=== PATIENT | female | born 1960 | race Caucasian/White ===

== ENCOUNTER → 2020-12-07 | Outpatient (CLI) | payer BC ==
--- NOTE | 2020-12-07 14:54 | KCIC ---
Bilateral digital screening mammograms with 3-D tomosynthesis: Reason for examination: Routine screening. Comparison is made to previous study dated 12/04/2018. Bilateral mammograms in CC and oblique projections were obtained with 2-D imaging and 3-D tomosynthes is imaging on a Siemens Inspiration unit and reviewed on the workstation. Interpretation was made wit h the benefit of CAD. The skin and nipples show no abnormalities. No abnormal axillary lymph nodes are seen. The breast par enchyma is heterogeneously dense. (Breast density: Category C.) There appears to be some nodular pare nchymal density at the 9:00 B position of the right breast. Further evaluation with ultrasound is rec ommended. There are no other dominant masses, suspicious calcifications or architectural distortion. A few benign appearing calcifications are present. Impression: Nodular asymmetry at the 9:00 B position of the right breast. Recommend further evaluation. Your patient's mammogram demonstrates that she has dense breast tissue (breast density category C or D), which could hide abnormalities, and if she has other risk factors for breast cancer that have bee n identified, she might benefit from supplemental screening tests that may be suggested by you as her ordering physician. Dense breast tissue, in and of itself, is a relatively common condition. Therefo re, this information is not provided to cause undue concern, but rather to raise your awareness and t o promote discussion with your patient regarding the presence of other risk factors, in addition to d ense breast tissue. Your patient's mammography results will be sent to her. BI-RAD Category 0: Incomplete. Needs additional imaging evaluation. "Our facility is accredited by the [employer] Mammography [employer]." This patient's information has been entered into a reminder system for the patient to be notified wit h the results of her examination and a target date for the next mammogram. Electronically signed by: Tonie Parson MD (12/07/2020 2:52 PM) [email or web address]
== END ==
LOC: KCIC MAMMO 13:35
PROVIDERS: ATTEND Family Medicine
DX: Z12.31 Encounter for screening mammogram for malignant neoplasm of breast (principal)
CPT/HCPCS: 77063; 77067

== ENCOUNTER → 2020-12-23 | Outpatient (CLI) | payer BC ==
--- NOTE | 2020-12-23 11:55 | KCIC ---
Right breast ultrasound: Reason for examination: Nodular density on screening mammogram. Comparison is made to mammographic exam dated 12/07/2020. Right whole breast ultrasound including evaluation of all 4 quadrants and the retroareolar and axilla ry regions of the right breast was performed. At the 9:00 position 7 cm from the nipple, there is a hypoechoic circumscribed lesion in parallel elina entation with some posterior acoustic enhancement measuring 9.7 mm in greatest dimension. The appeara nce is consistent with a small fibroadenoma. No other cystic or solid nodules are seen. No abnormal a ppearing lymph nodes are seen in the axilla. IMPRESSION: Small nodule consistent with a fibroadenoma at the 9:00 position measuring 9.7 mm in greatest dimensi on. Recommend 6 month follow-up with ultrasound. BI-RADS Category 3: Probably Benign. "Our facility is accredited by the [employer] Mammography [employer]." This patient's information has been entered into a reminder system for the patient to be notified wit h the results of her examination and a target date for the next mammogram. Electronically signed by: Tonie Parson MD (12/23/2020 11:53 AM) [email or web address]
== END ==
LOC: KCIC US 09:52
PROVIDERS: ATTEND Family Medicine
DX: N63.13 Unspecified lump in the right breast, lower outer quadrant (principal)
CPT/HCPCS: 76641

== ENCOUNTER → 2021-08-17 | Outpatient (CLI) | payer BC, OTHER ==
--- NOTE | 2021-08-17 15:17 | KCIC ---
Right breast ultrasound: Reason for examination: Follow-up for nodule. Comparison is made to previous exam dated 12/23/2020. Ultrasound examination of the right breast and axilla was performed. The right breast at the 9:00 position 7 cm from the nipple, there continues to be a 9.4 x 8.9 mm hypo echoic circumscribed lesion in parallel orientation with some mild posterior acoustic enhancement con sistent with fibroadenoma. This is unchanged. No other cystic or solid nodules are seen. No abnormal appearing lymph nodes are seen in the right axilla. IMPRESSION: Small nodule consistent with fibroadenoma at the 9:00 position appears be stable. Recommend continued 6 month follow-up with right breast ultrasound to assess one year stability. This can be performed a t the time of bilateral mammograms. BI-RADS Category 3: Probably Benign. "Our facility is accredited by the [employer] Mammography [employer]." This patient's information has been entered into a reminder system for the patient to be notified wit h the results of her examination and a target date for the next mammogram. Electronically signed by: Tnoie Parson MD (08/17/2021 3:14 PM) [email or web address]
== END ==
LOC: KCIC US 13:00
PROVIDERS: ATTEND Family Medicine
DX: Z09 Encounter for follow-up examination after completed treatment for conditions other than malignant neoplasm (principal); R92.8 Other abnormal and inconclusive findings on diagnostic imaging of breast
CPT/HCPCS: 76641